=== PATIENT | male | born 1975 | race Hispanic/Latino ===

== ENCOUNTER 2017-05-15 11:06 | Emergency (ER) | payer OTHER ==
[2017-05-15 11:16] VITALS: RESP 18; TEMP 98.1; BMI 25.8
--- NOTE | 2017-05-15 11:47 | ED PDOC ---
Arrival/HPI - General Chief Complaint: Seizure Time Seen by Provider: 05/15/17 11:15 Historian: Patient - History of Present Illness Narrative History of Present Illness (Text): 05/15/17 11:20 Kelechi Quintero is a 42 year old male, whose past medical history includes generalized tonic clonic seizures, who presents to the emergency department complaining of a witnessed seizure prior to arrival. 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 Patient had a 5 minute generalized tonic-clonic seizure, experienced urinary incontinence, and bit the right side of her tongue as witness by co-courier driver. Patient states that he lives in [place] and his last seizure was five years ago. His doctor stopped his medications 3 years ago and patient does not remember what he took. Patient has no other complaints at this time. Patient does not smoke or do any drugs. Time/Duration: Prior to Arrival Symptom Onset: Sudden Symptom Course: Resolved Activities at Onset: Light Context: Home Associated Symptoms (Text): 05/15/17 12:23 Seizure history, but none in approximately 5 years. His physician stopped his medication 3 years ago. Patient had a generalized tonic-clonic seizure with urinary incontinence and tongue biting witnessed by his coworker and lasting approximately 5 minutes. He currently feels well. Past Medical History - Provider Review Nursing Documentation Reviewed: Yes - Cardiac Hx Cardiac Disorders: No - Pulmonary Hx Respiratory Disorders: No - Neurological Hx Neurological Disorder: Yes Hx Seizures: Yes - HEENT Hx HEENT Disorder: No - Renal Hx Renal Disorder: No - Endocrine/Metabolic Hx Endocrine Disorders: No - Hematological/Oncological Hx Blood Disorders: No - Integumentary Hx Dermatological Disorder: No - Musculoskeletal/Rheumatological Hx Musculoskeletal Disorders: No - Gastrointestinal Hx Gastrointestinal Disorders: No - Genitourinary/Gynecological Hx Genitourinary Disorders: No - Psychiatric Hx Psychophysiologic Disorder: No Hx Substance Use: No Family/Social History - Physician Review Nursing Documentation Reviewed: Yes Family/Social History: No Known Family HX Smoking Status: Heavy Smoker > 10 Cigarettes Daily Hx Alcohol Use: Yes Frequency of alcohol use: Socially Hx Substance Use: No Allergies/Home Meds Allergies/Adverse Reactions: Allergies No Known Allergies Allergy (Verified 05/15/17 11:13) Review of Systems - Physician Review All systems were reviewed & negative as marked: Yes - Review of Systems Constitutional: absent: Fevers, Night Sweats Eyes: absent: Vision Changes ENT: absent: Hearing Changes Respiratory: absent: SOB, Cough Cardiovascular: absent: Chest Pain, Palpitations, Orthopnea, Syncope Gastrointestinal: absent: Abdominal Pain, Nausea, Vomiting Genitourinary Male: absent: Dysuria, Frequency Musculoskeletal: absent: Arthralgias Skin: absent: Rash, Pruritis Neurological: Seizure. absent: Headache, Dizziness, Focal Weakness, Gait Changes, Speech Changes, Facial Droop, Disequilibrium Endocrine: absent: Diaphoresis Hemo/Lymphatic: absent: Adenopathy Psychiatric: absent: Anxiety, Depression Physical Exam Vital Signs Reviewed: Yes Vital Signs Temp Pulse Resp BP Pulse Ox 05/15/17 11:14 98.1 F 121 H 18 143/86 96 Temperature: Afebrile Blood Pressure: Normal Pulse: Tachycardic Respiratory Rate: Normal Appearance: Positive for: Well-Appearing, Non-Toxic, Comfortable Pain Distress: None Mental Status: Positive for: Alert and Oriented X 3 - Systems Exam Head: Present: Atraumatic, Normocephalic Pupils: Present: PERRL Extroacular Muscles: Present: EOMI Conjunctiva: Present: Normal Ears: Present: NORMAL TM. No: Erythema, Normal Canal Mouth: Present: Moist Mucous Membranes Pharnyx: No: ERYTHEMA, EXUDATE, TONSILS ENLARGED Neck: Present: Normal Range of Motion Respiratory/Chest: Present: Clear to Auscultation, Good Air Exchange. No: Respiratory Distress, Accessory Muscle Use Cardiovascular: Present: Regular Rate and Rhythm, Normal S1, S2. No: Murmurs Abdomen: Present: Normal Bowel Sounds. No: Tenderness, Distention, Peritoneal Signs, Rebound, Guarding Back: Present: Normal Inspection Upper Extremity: Present: Normal Inspection. No: Cyanosis, Edema Lower Extremity: Present: Normal Inspection. No: Edema Neurological: Present: GCS=15, CN II-XII Intact, Speech Normal, Motor Func Grossly Intact, Normal Sensory Function, Normal Cerebellar Funct, Norm Deep Tendon Reflexes, Gait Normal, Memory Normal, Normal 2Pt Descrimination, Other Skin: Present: Warm, Dry, Normal Color. No: Rashes Psychiatric: Present: Alert, Oriented x 3, Normal Insight, Normal Concentration Medical Decision Making ED Course and Treatment: 05/15/17 11:49 Impression: 42 year old male complaining of a witnessed generalized tonic clonic seizure prior to arrival. Plan: -- EKG -- Head CT w/o contrast -- Urinalysis -- Labs -- Reassess and disposition Progress Notes: 05/15/17 12:25 EKG shows sinus tachycardia rate approximately 105 with elevated J point and no acute findings - Lab Interpretations Lab Results: 05/15/17 11:40 05/15/17 11:40 Lab Results 05/15/17 12:30: Urine Opiates Screen Negative, Urine Methadone Screen Negative, Ur Barbiturates Screen Negative, Ur Phencyclidine Scrn Negative, Ur Amphetamines Screen Negative, U Benzodiazepines Scrn Negative, U Oth Cocaine Metabols Negative, U Cannabinoids Screen Negative 05/15/17 12:30: Urine Color Yellow, Urine Appearance Clear, Urine pH 6.0, Ur Specific [place] 1.015, Urine Protein Negative, Urine Glucose (UA) Negative, Urine Ketones Negative, Urine Blood Negative, Urine Nitrate Negative, Urine Bilirubin Negative, Urine Urobilinogen 0.2, Ur Leukocyte Esterase Negative 05/15/17 11:40: Alcohol, Quantitative < 10 05/15/17 11:40: Sodium 138, Potassium 4.6, Chloride 104, Carbon Dioxide 21, Anion Gap 18, BUN 15, Creatinine 1.0, Est GFR ( Amer) > 60, Est GFR (Non- Af Amer) > 60, Random Glucose 118 H, Calcium 11.0 H, Magnesium 2.1, Total Bilirubin 0.6, AST 47, ALT 61 H, Alkaline Phosphatase 86, Total Protein 7.8, Albumin 4.5, Globulin 3.3, Albumin/Globulin Ratio 1.4 05/15/17 11:40: WBC 15.3 H, RBC 4.99, Hgb 15.4, Hct 45.6, MCV 91.4, MCH 30.9, MCHC 33.8, RDW 14.5, Plt Count 495 H, MPV 9.2, Gran % 75.5 H, Lymph % (Auto) 16.0 L, [place] % (Auto) 7.0 H, Eos % (Auto) 1.2 L, Baso % (Auto) 0.3, Gran # 11.52 H, Lymph # 2.4, [place] # 1.1 H, Eos # 0.2, Baso # 0.04 I have reviewed the lab results: Yes - RAD Interpretation Radiology Orders: 05/15/17 11:30 HEAD W/O CONTRAST [CT] Stat CT scan of the head as read by the radiologist shows no acute findings Scallop Binder: Radiologist - Medication Orders Current Medication Orders: Discontinued Medications Ibuprofen (Motrin Tab) 400 mg PO STAT STA Stop: 05/15/17 13:23 Last Admin: 05/15/17 13:27 Dose: 400 mg MAR Pain/Vitals Document 05/15/17 13:27 LA (Rec: 05/15/17 13:29 LA [id number]) Pain Reassessment Is This A Pain ReAssessment? No Sleep Is patient sleeping during reassessment? No Presence of Pain Presence of Pain Yes Pain Scale Used Pain Scale Used Numeric Location Pain Location Body Site Back Description Acute Intensity 7 Scale Used Numeric - Scribe Statement The provider has reviewed the documentation as recorded by the Reeceibduc Lozano Provider Scribe Attestation: All medical record entries made by the Scribe were at my direction and personally dictated by me. I have reviewed the chart and agree that the record accurately reflects my personal performance of the history, physical exam, medical decision making, and the department course for this patient. I have also personally directed, reviewed, and agree with the discharge instructions and disposition. Disposition/Present on Arrival - Present on Arrival Any Indicators Present on Arrival: No History of DVT/PE: No History of Uncontrolled Diabetes: No Urinary Catheter: No History of Decub. Ulcer: No History Surgical Site Infection Following: None - Disposition Have Diagnosis and Disposition been Completed?: Yes Diagnosis: Seizure Disposition: HOME/ ROUTINE Disposition Time: 13:35 Patient Plan: Discharge Condition: GOOD Discharge Instructions (ExitCare): Recurrent Seizures in Adults (ED) Additional Instructions: No driving until evaluated by her neurologist. Follow up in ER as needed. Begin Keppra. Prescriptions: Levetiracetam [Keppra] 500 mg PO BID #14 tablet Referrals: Anders Rose, [Primary Care Provider] - Follow up with primary Forms: [employer] (Greek)
[2017-05-15 11:50] LABS: BASO # 0.04 K/mm3 (0.0-2.0); BASO % 0.3 % (0.0-3.0); EOS # 0.2 (0.0-0.7); EOS % 1.2 % (1.5-5.0); GRAN # 11.52 (1.4-6.5); GRAN % 75.5 % (50.0-68.0); HEMOGLOBIN 15.4 g/dL (14.0-18.0); LYMPH # 2.4 (1.2-3.4); MEAN CELL VOLUME 91.4 fl (80.0-105.0); MEAN CORPUSCULAR HEMOGLOBIN 30.9 pg (25.0-35.0); MEAN CORPUSCULAR HGB CONC 33.8 g/dl (31.0-37.0); MEAN PLATELET VOLUME 9.2 fl (7.0-11.0); MONO # 1.1 (0.1-0.6); RBC 4.99 10^6/uL (3.5-6.1); RED CELL DISTRIBUTION WIDTH 14.5 % (11.5-14.5); WHITE BLOOD COUNT 15.3 10^3/ul (4.5-11.0)
[2017-05-15 12:03] LABS: ALB/GLOB RATIO 1.4 (1.1-1.8); ALBUMIN 4.5 g/dL (3.0-4.8); ALT/SGPT 61 U/L (7-56); AST/SGOT 47 U/L (17-59); BLOOD UREA NITROGEN 15 mg/dL (7-21); GFR AFRICAN-AMERICAN > 60; GFR NON-AFRICAN AMERICAN > 60; MAGNESIUM 2.1 mg/dL (1.7-2.2)
--- NOTE | 2017-05-15 12:33 | CT ---
PROCEDURE: CT HEAD WITHOUT CONTRAST. HISTORY: seizure COMPARISON: None available. TECHNIQUE: Axial computed tomography images were obtained through the head/brain without intravenous contrast. Radiation dose: Total exam DLP = 945 mGy-cm. This CT exam was performed using one or more of the following dose reduction techniques: Automated exposure control, adjustment of the mA and/or kV according to patient size, and/or use of iterative reconstruction technique. FINDINGS: HEMORRHAGE: No intracranial hemorrhage. BRAIN: No mass effect or edema. No atrophy or chronic microvascular ischemic changes. VENTRICLES: Unremarkable. No hydrocephalus. CALVARIUM: Unremarkable. PARANASAL SINUSES: Unremarkable as visualized. No significant inflammatory changes. MASTOID AIR CELLS: Unremarkable as visualized. No inflammatory changes. OTHER FINDINGS: None. IMPRESSION: No acute findings
[2017-05-15 12:42] LABS: URINE BILIRUBIN NEGATIVE (NEGATIVE); URINE BLOOD NEGATIVE (NEGATIVE); URINE GLUCOSE (UA) NEGATIVE (NEGATIVE); URINE LEUKOCYTE ESTERASE NEGATIVE Leu/uL (NEGATIVE); URINE NITRATE NEGATIVE (NEGATIVE); URINE PROTEIN NEGATIVE mg/dL (<30 mg/dL); URINE UROBILINOGEN 0.2 E.U./dL (<1 E.U./dL)
[2017-05-15 12:44] LABS: URINE APPEARANCE CLEAR (CLEAR); URINE COLOR YELLOW (YELLOW)
[2017-05-15 12:52] LABS: BARBITURATES, UR NEGATIVE (NEGATIVE); BENZODIAZEPINES, UR NEGATIVE (NEGATIVE); OPIATES, UR NEGATIVE (NEGATIVE); PHENCYCLIDINE, UR NEGATIVE (NEGATIVE)
[2017-05-15 13:48] VITALS: BP 149/99; PULSE 76; O2SAT 99
--- NOTE | 2017-05-15 16:21 | CARD ---
APPROVED REPORT EKG Measurement Heart [id number] <Conclusion> Sinus tachycardia ST elevation, consider early repolarization, pericarditis, or injury Abnormal ECG
== END 2017-05-15 14:05 | disposition home or self-care (01) ==
LOC: ED 11:06
DX: G40.409 Other generalized epilepsy and epileptic syndromes, not intractable, without status epilepticus (principal); F17.210 Nicotine dependence, cigarettes, uncomplicated